=== PATIENT | male | born 1995 | race African-American/Black ===

== ENCOUNTER 2017-02-02 18:05 | Emergency (ER) | payer OTHER ==
[2017-02-02 18:36] VITALS: BP 127/74
--- NOTE | 2017-02-02 19:13 | XRAY Preliminary Report ---
Exam: XR Toe(s) RT IMPRESSION: Soft tissue swelling. [facility] SITE ID: [id number]
--- NOTE | 2017-02-02 19:15 | XRAY Report ---
EXAM: RIGHT FIFTH TOE RADIOGRAPHY EXAM DATE: 02/02/2017 06:40 PM. CLINICAL HISTORY: Trauma, pain. COMPARISON: None. TECHNIQUE: 3 views. FINDINGS: Bones: Normal. No fracture or bone lesion. Joints: Normal. No subluxations. Soft Tissues: Mild soft tissue swelling. IMPRESSION: Soft tissue swelling. [facility] Referring Provider Line: [phone] SITE ID: [id number]
--- NOTE | 2017-02-02 20:13 | ED Physician Documentation ---
PD HPI LOWER EXT INJURY - Stated complaint Stated Complaint: RT TOE PX - Chief complaint Chief Complaint: Ext Problem - History obtained from History obtained from: Patient - History of Present Illness PD HPI LOW EXT INJURY LOCATION: Right, Toe Type of injury: Blunt / blow Where injury occurred: Home Associated symptoms: Swelling, Discolored - Additional information Additional information: The patient is an otherwise healthy 21-year-old male who accidentally jammed his right little toe into the corner of a couch just prior to arrival. He denies any other injuries. He presents now with pain and swelling of his right little toe. Review of Systems Constitutional: denies: Fever GI: denies: Nausea, Vomiting Musculoskeletal: reports: Extremity pain (right little toe), Pain with weight bearing Neurologic: denies: Focal weakness, Numbness PD PAST MEDICAL HISTORY - Past Medical History Past Medical History: No Cardiovascular: None Respiratory: None Neuro: None Endocrine/Autoimmune: None - Past Surgical History Past Surgical History: No - Present Medications Home Medications: Ambulatory Orders Medication Instructions Recorded Confirmed No Known Home Medications [No 02/02/17 02/02/17 Known Home Medications] - Allergies Allergies/Adverse Reactions: Allergies Allergy/AdvReac Type Severity Reaction Status Date / Time No Known Drug Allergies Allergy Verified 02/02/17 18:36 - Social History Does the pt smoke?: No Smoking Status: Never smoker - Immunizations Immunizations are current?: Yes PD ED PE NORMAL - Vitals Vital signs reviewed: Yes (normal) - General General: Alert and oriented X 3, Well developed/nourished - HEENT HEENT: Atraumatic - Respiratory Respiratory: No respiratory distress - Derm Derm: No rash - Extremities Extremities: Other (There is swelling, mild ecchymosis, and tenderness to palpation of the right little toe, particularly at the PIP joint. There is no break in the integument. Distal neurovascular is intact. There is no tenderness to palpation over the metatarsals.) - Neuro Neuro: Alert and oriented X 3, No motor deficit, Normal speech Results - Vitals Vitals: Oxygen O2 Source Room air - Rads (name of study) Toes right foot Radiology: Prelim report reviewed, EMP read contemporaneously, See rad report ( Soft tissue swelling. No bony abnormality detected.) PD MEDICAL DECISION MAKING - ED course Complexity details: reviewed results, considered differential, d/w patient, d/w family ED course: The patient's presentation is significant for contusion to the right little toe. X-ray reveals no evidence of fracture or dislocation. I discussed with him and his the expected course of healing, symptomatic treatment and outpatient follow-up, as well as potentially worrisome signs or symptoms that should prompt reevaluation in the emergency department. Departure - Departure Disposition: 01 Home, Self Care Clinical Impression: Contusion of toe of right foot Qualifiers: Encounter type: initial encounter Toe: lesser toe Damage to nail status: with damage Qualified Code(s): S90.221A - Contusion of right lesser toe(s) with damage to nail, initial encounter Condition: Stable Instructions: ED Contusion Lower Ext Follow-Up: KINGA Marie [Provider Group] Comments: Keep your right foot elevated as much of the time as possible. You can use Tylenol or ibuprofen if needed for discomfort. Follow-up with your primary physician within 1 week. Call to schedule an appointment. Return to the emergency department if you develop any sign of infection, markedly increasing swelling, or otherwise worsening symptoms. Discharge Date/Time: 02/02/17 20:16
== END 2017-02-02 20:16 | disposition home or self-care (01) ==
LOC: ED 18:05
DX: S90.121A Contusion of right lesser toe(s) without damage to nail, initial encounter (principal); W22.8XXA Striking against or struck by other objects, initial encounter; Y92.019 Unspecified place in single-family (private) house as the place of occurrence of the external cause
CPT/HCPCS: 73660; 99283